=== PATIENT | male | born 1945 | race Asian ===

== ENCOUNTER 2018-08-23 16:15 | Emergency (ER) | payer OTHER, MEDICAID ==
[2018-08-23] MEDS ORDERED: LET GEL TOPICAL 1 EA SYR TP ONE (16:25)
--- NOTE | 2018-08-23 18:18 | EDPHY ---
H & P Stated Complaint: CUT LEFT FINGER WITH DRILL @ 1445 Time Seen by Provider: 08/23/18 16:18 HPI/ROS: 73-year-old male presents complaining of left finger laceration states he was working with a drill drilling a piece of metal that slipped. No numbness or tingling in his hand or fingers, no difficulty moving his fingers. A [place] contact worker was used to obtain this history Review of systems As per HPI General no fever no chills no weakness HEENT no eye pain no eye discharge. No eye redness, no sore throat Respiratory no cough, no shortness of breath Cardiac no chest pain, no peripheral edema GI no abdominal pain, no diarrhea, no constipation, no nausea, no vomiting no flank pain, no hematuria, no dysuria Musculoskeletal no myalgias, no joint pain Heme no easy bruising, no easy bleeding Endo no polyuria, no polydipsia Skin no rashes, no pruritus Neuro no syncope, no dizziness, no headaches Source: Patient, Family Exam Limitations: Language barrier - Personal History Current Tetanus/Diphtheria Vaccine: Unsure Current Tetanus Diphtheria and Acellular Pertussis (TDAP): Unsure - Medical/Surgical History Hx Asthma: No Hx Chronic Respiratory Disease: No Hx Diabetes: No Hx Cardiac Disease: No Hx Renal Disease: No Hx Cirrhosis: No Hx Alcoholism: No Hx HIV/AIDS: No Hx Splenectomy or Spleen Trauma: No Other PMH: see previous visit - Family History Significant Family History: No pertinent family hx - Social History Smoking Status: Former smoker Alcohol Use: None Drug Use: None - Physical Exam Exam: 73-year-old male alert and oriented no acute distress nontoxic appearance, afebrile Alert and oriented in no acute distress nontoxic appearance, afebrile Atraumatic normocephalic Neck no JVD Lungs clear to auscultation, no respiratory distress Heart regular rate and rhythm Extremities no cyanosis clubbing edema Left hand-left middle finger, 1.5 cm laceration overlying volar crease at PIP, from, good cap refill sensation intact no FB, no tendon involvement Constitutional: Initial Vital Signs Temperature (C) 36.9 C 08/23/18 16:28 Heart Rate 67 08/23/18 16:28 Respiratory Rate 16 08/23/18 16:28 Blood Pressure 130/76 H 08/23/18 16:28 O2 Sat (%) 95 08/23/18 16:28 O2 Delivery Mode Room Air Allergies/Adverse Reactions: No Known Allergies Allergy (Verified 08/23/18 16:27) Home Medications: Medication Instructions Recorded NK [No Known Home Meds] 08/23/18 Medical Decision Making Procedures: Procedure note-laceration The wound was irrigated with copious amounts of saline. Lidocaine 1% combined with bupivacaine 0.25% was used for a digital block 8 simple interrupted sutures were placed. 4-0 Ethilon was used. Patient tolerated procedure well. Placed in a splint. Given wound care instructions ED Course/Re-evaluation: Patient seen and evaluated for finger laceration. Impression/plan Finger laceration, no tendon involvement Sutured repair Return in 10-12 days for suture removal Differential Diagnosis: Differential diagnosis considered but not limited to Finger laceration Departure - Departure Disposition: Home, Routine, Self-Care Clinical Impression: Laceration of left middle finger Condition: Good Instructions: Finger Laceration (ED) Additional Instructions: Return in 10-12 days for suture removal You have 8 sutures Referrals: TOÑO COON [Primary Care Provider] - As per Instructions
[2018-08-23 18:57] VITALS: BP 145/89
== END 2018-08-23 18:55 | disposition home or self-care (01) ==
LOC: CED 16:15
PROC: 0HQGXZZ Repair Left Hand Skin, External Approach (ICD-10-PCS; principal; 2018-08-23)
DX: S61.213A Laceration without foreign body of left middle finger without damage to nail, initial encounter (principal); W26.8XXA Contact with other sharp object(s), not elsewhere classified, initial encounter; Y93.89 Activity, other specified
CPT/HCPCS: 99282-ER